=== PATIENT | male | born 1945 | race Caucasian/White ===

== ENCOUNTER → 2017-03-24 | Outpatient (CLI) | payer OTHER ==
[~2017-03-24] MED LIST: ASPIRIN325 PO; COUMADIN 5 MG TA5 M1 PO; DILTIAZEM 24HR240 MG PO; HYZAAR 100-251 EACH PO; PLAVIX 75 MG TA75 MG PO; SIMVASTATIN40 MG PO; TOPROL XL50 MG PO
--- NOTE | ~2017-03-24 | 24HR ---
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 The study duration was 24 hours and the technical quality was good. 2. Predominant rhythm atrial fibrillation at an average heart rate of 65 bpm. The heart rate ranged from 34-107 bpm. Longest RR interval 2.3 seconds. 3. Occasional isolated premature ventricular or aberrantly conducted supraventricular complexes (2%). No episodes of ventricular tachycardia. Occasional ventricular couplets. 4. No symptoms reported. Electronically Signed On 03-31-2017 8:32:02 INSTRUMENT REPAIR SUPERVISOR by Leon Dillard [email or web address] <ELECTRONICALLY SIGNED> By: Leon Dillard MD, [facility] 03/31/17 0832 141 141 Leon Dillard MD, [facility] /EPI
[2017-03-24 15:32] LABS: ALBUMIN 3.6 g/dL (3.4-5.0); DIRECT BILIRUBIN 0.2 mg/dL (<0.1-0.3); TOTAL BILIRUBIN 0.9 mg/dL (<0.1-1.0); TOTAL PROTEIN 7.8 g/dL (6.4-8.2)
== END ==
LOC: CV 14:30 → LABMALL 14:30
PROVIDERS: Internal Medicine Cardiovascular Disease
DX: I48.91 Unspecified atrial fibrillation (principal); E78.00 Pure hypercholesterolemia, unspecified; R00.1 Bradycardia, unspecified

== ENCOUNTER → 2019-02-14 | Outpatient (CLI) | payer OTHER | LOC: SJCVC 15:02 | DX: R94.31 Abnormal electrocardiogram [ECG] [EKG] (principal); I48.21 Permanent atrial fibrillation; I25.10 Atherosclerotic heart disease of native coronary artery without angina pectoris; I10 Essential (primary) hypertension; E78.00 Pure hypercholesterolemia, unspecified; E11.9 Type 2 diabetes mellitus without complications; Z79.82 Long term (current) use of aspirin; Z79.84 Long term (current) use of oral hypoglycemic drugs; Z79.1 Long term (current) use of non-steroidal anti-inflammatories (NSAID); Z79.01 Long term (current) use of anticoagulants; Z79.899 Other long term (current) drug therapy; Z87.891 Personal history of nicotine dependence ==

== ENCOUNTER → 2019-03-20 | Outpatient (CLI) | payer OTHER | LOC: SJCVC 09:51 | DX: Z51.81 Encounter for therapeutic drug level monitoring (principal); I48.91 Unspecified atrial fibrillation; I25.810 Atherosclerosis of coronary artery bypass graft(s) without angina pectoris; Z95.1 Presence of aortocoronary bypass graft; Z79.01 Long term (current) use of anticoagulants ==

== ENCOUNTER → 2019-04-12 | Outpatient (CLI) | payer OTHER | LOC: SJCVC 09:51 | DX: Z51.81 Encounter for therapeutic drug level monitoring (principal); I48.91 Unspecified atrial fibrillation; I25.810 Atherosclerosis of coronary artery bypass graft(s) without angina pectoris; Z95.1 Presence of aortocoronary bypass graft; Z79.01 Long term (current) use of anticoagulants ==

== ENCOUNTER → 2019-06-13 | Outpatient (CLI) | payer OTHER | LOC: SJCVCIMAG 09:00 | DX: R94.31 Abnormal electrocardiogram [ECG] [EKG] (principal); I25.10 Atherosclerotic heart disease of native coronary artery without angina pectoris; I10 Essential (primary) hypertension; I48.21 Permanent atrial fibrillation; I35.0 Nonrheumatic aortic (valve) stenosis; E78.00 Pure hypercholesterolemia, unspecified ==

== ENCOUNTER → 2019-06-27 | Outpatient (CLI) | payer OTHER | LOC: SJCVC 10:48 | PROVIDERS: ATTEND Internal Medicine Cardiovascular Disease | DX: Z51.81 Encounter for therapeutic drug level monitoring (principal); I48.91 Unspecified atrial fibrillation; I25.10 Atherosclerotic heart disease of native coronary artery without angina pectoris; Z95.1 Presence of aortocoronary bypass graft; Z87.891 Personal history of nicotine dependence; Z79.01 Long term (current) use of anticoagulants ==

== ENCOUNTER → 2019-07-25 | Outpatient (CLI) | payer OTHER | LOC: SJCVC 10:09 | PROVIDERS: ATTEND Internal Medicine Cardiovascular Disease | DX: Z51.81 Encounter for therapeutic drug level monitoring (principal); I48.91 Unspecified atrial fibrillation; I25.810 Atherosclerosis of coronary artery bypass graft(s) without angina pectoris; Z95.1 Presence of aortocoronary bypass graft; Z79.01 Long term (current) use of anticoagulants; Z79.82 Long term (current) use of aspirin; Z79.84 Long term (current) use of oral hypoglycemic drugs; Z79.899 Other long term (current) drug therapy ==

== ENCOUNTER → 2019-08-23 | Outpatient (CLI) | payer OTHER | LOC: SJCVC 10:41 | PROVIDERS: ATTEND Internal Medicine Cardiovascular Disease | DX: Z51.81 Encounter for therapeutic drug level monitoring (principal); I48.91 Unspecified atrial fibrillation; I25.810 Atherosclerosis of coronary artery bypass graft(s) without angina pectoris; Z95.1 Presence of aortocoronary bypass graft; Z79.01 Long term (current) use of anticoagulants; Z79.899 Other long term (current) drug therapy; Z79.82 Long term (current) use of aspirin ==

== ENCOUNTER → 2019-09-19 | Outpatient (CLI) | payer OTHER | LOC: SJCVC 10:18 | PROVIDERS: ATTEND Internal Medicine Cardiovascular Disease | DX: Z51.81 Encounter for therapeutic drug level monitoring (principal); I48.91 Unspecified atrial fibrillation; I25.10 Atherosclerotic heart disease of native coronary artery without angina pectoris; I10 Essential (primary) hypertension; Z95.1 Presence of aortocoronary bypass graft; Z79.01 Long term (current) use of anticoagulants; Z79.899 Other long term (current) drug therapy ==

== ENCOUNTER → 2019-11-14 | Outpatient (CLI) | payer OTHER | LOC: SJCVC 10:41 | PROVIDERS: ATTEND Internal Medicine Cardiovascular Disease | DX: Z51.81 Encounter for therapeutic drug level monitoring (principal); Z79.01 Long term (current) use of anticoagulants ==

== ENCOUNTER → 2020-01-09 | Outpatient (CLI) | payer OTHER | LOC: SJCVC 10:25 | PROVIDERS: ATTEND Internal Medicine Cardiovascular Disease | DX: I25.10 Atherosclerotic heart disease of native coronary artery without angina pectoris (principal); I10 Essential (primary) hypertension; I35.0 Nonrheumatic aortic (valve) stenosis; I48.21 Permanent atrial fibrillation; E78.00 Pure hypercholesterolemia, unspecified; R60.9 Edema, unspecified; Z87.891 Personal history of nicotine dependence; Z72.89 Other problems related to lifestyle; Z95.1 Presence of aortocoronary bypass graft; Z79.01 Long term (current) use of anticoagulants; Z79.899 Other long term (current) drug therapy ==

== ENCOUNTER → 2020-02-13 | Outpatient (CLI) | payer OTHER | LOC: SJCVC 10:19 | PROVIDERS: ATTEND Internal Medicine Cardiovascular Disease | DX: Z51.81 Encounter for therapeutic drug level monitoring (principal); I48.91 Unspecified atrial fibrillation; I25.10 Atherosclerotic heart disease of native coronary artery without angina pectoris; Z95.1 Presence of aortocoronary bypass graft; Z79.82 Long term (current) use of aspirin; Z79.01 Long term (current) use of anticoagulants; Z79.899 Other long term (current) drug therapy ==

== ENCOUNTER → 2020-03-12 | Outpatient (CLI) | payer OTHER | LOC: SJCVC 10:15 | PROVIDERS: ATTEND Internal Medicine Cardiovascular Disease | DX: Z51.81 Encounter for therapeutic drug level monitoring (principal); Z79.01 Long term (current) use of anticoagulants; Z79.82 Long term (current) use of aspirin; Z79.899 Other long term (current) drug therapy; Z87.891 Personal history of nicotine dependence; Z72.89 Other problems related to lifestyle ==

== ENCOUNTER → 2020-04-09 | Outpatient (CLI) | payer OTHER | LOC: SJCVC 10:42 | PROVIDERS: ATTEND Internal Medicine Cardiovascular Disease | DX: Z51.81 Encounter for therapeutic drug level monitoring (principal); I48.91 Unspecified atrial fibrillation; I25.10 Atherosclerotic heart disease of native coronary artery without angina pectoris; Z95.1 Presence of aortocoronary bypass graft; Z79.01 Long term (current) use of anticoagulants ==

== ENCOUNTER → 2020-05-08 | Outpatient (CLI) | payer OTHER | LOC: SJCVC 10:42 | PROVIDERS: ATTEND Internal Medicine Cardiovascular Disease | DX: Z51.81 Encounter for therapeutic drug level monitoring (principal); I48.91 Unspecified atrial fibrillation; I25.10 Atherosclerotic heart disease of native coronary artery without angina pectoris; R60.0 Localized edema; Z95.1 Presence of aortocoronary bypass graft; Z79.01 Long term (current) use of anticoagulants ==

== ENCOUNTER → 2020-06-10 | Outpatient (CLI) | payer OTHER | LOC: SJCVC 10:30 | PROVIDERS: ATTEND Internal Medicine Cardiovascular Disease | DX: Z51.81 Encounter for therapeutic drug level monitoring (principal); I48.91 Unspecified atrial fibrillation; I25.10 Atherosclerotic heart disease of native coronary artery without angina pectoris; Z95.1 Presence of aortocoronary bypass graft; Z79.01 Long term (current) use of anticoagulants; Z79.899 Other long term (current) drug therapy ==

== ENCOUNTER → 2020-07-30 | Outpatient (CLI) | payer OTHER | LOC: SJCVCIMAG 08:35 | PROVIDERS: ATTEND Internal Medicine Cardiovascular Disease | DX: I49.3 Ventricular premature depolarization (principal); I25.10 Atherosclerotic heart disease of native coronary artery without angina pectoris; I10 Essential (primary) hypertension; I48.21 Permanent atrial fibrillation; I35.0 Nonrheumatic aortic (valve) stenosis; E78.00 Pure hypercholesterolemia, unspecified; R60.9 Edema, unspecified; E11.9 Type 2 diabetes mellitus without complications; I49.5 Sick sinus syndrome; E78.5 Hyperlipidemia, unspecified; Z98.61 Coronary angioplasty status; Z87.891 Personal history of nicotine dependence; Z72.89 Other problems related to lifestyle; Z79.82 Long term (current) use of aspirin; Z79.84 Long term (current) use of oral hypoglycemic drugs; Z79.899 Other long term (current) drug therapy; Z79.01 Long term (current) use of anticoagulants ==

== ENCOUNTER 2020-08-14 07:50 | Observation (INO) | payer OTHER ==
[~2020-08-14] VITALS: Ht 185.4 cm; Wt 99.8 kg
[2020-08-14] VITALS (10 sets, daily range): BP systolic 127–176; BP diastolic 61–82
[2020-08-14] MEDS ORDERED: LIPITOR80 MG PO (09:50)
[2020-08-14] MEDS ORDERED: CARVEDILOL12.5 MG PO (09:51)
[2020-08-14] MEDS ORDERED: LOSARTAN-HCTZ1 EAC1 PO (09:52)
[2020-08-14] MEDS ORDERED: METFORMIN HCL500 M3 PO (09:52)
[2020-08-14 13:44] LABS: BE(vivo) 2.2 mmol/L (-2 to +3); HCO3 29.3 mmol/L (22.0-26.0); PCO2 VENOUS 56.2 mmHg (41.0-51.0); PO2 VENOUS 43.1 mmHg (35.0-45.0)
[2020-08-14 13:44] LABS: BE(vivo) -0.3 mmol/L (-2 to +3); HCO3 25.8 mmol/L (22.0-26.0); PO2 133.3 mmHg (80.0-100.0); pH 7.349 (7.360-7.450); sO2 98.5 % (92.0-98.0)
--- NOTE | 2020-08-14 15:48 | CATHLAB ---
[facility] [address] [address] INVASIVE PROCEDURE REPORT Name: PREM JASSO Room #: 213-P [facility] Benito MBrenda#: [id number] Admission: 08/14/20 Attend Phys: Caleb Huber MD Discharge: Date of : 41 Report #: [id number] THIS REPORT FOR: cc: Calixto Veras MD, Rene P. MD Park, Jin S. MD ~ APPROVED REPORT Study performed: 08/14/2020 12:53:10 Patient Details Patient Status: Out-Patient Room #: The patient is a 74 year-old male Event Personnel Caleb Huber Chef Concierge, Griselda Lundberg RN RN, Marta Nance RTR Scrub, Amaury Malave RTR Monitor, Ashley Spencer RTR, RIBBON TIER Aquacultural Worker Supervisor Procedures Performed Art Access - R femoral artery* Chaitanya Access - R femoral vein Hemostasis with Manual pressure Right and Left Heart Cath w/or w/o Coronarie [id number] [facility] 47118 Initial Mod Sed Same Phys/QHP Gr5y 061312 96947 Mod Sed Same Phys/QHP Ea 491724 Indication Dyspnea, Positive stress test Risk Factors Hypercholesterolemia, Coronary Artery DiseaseHypertension, Diabetes Previous Procedures/Diagnoses Previous PCI Procedure Narrative The Right Groin^ was infiltrated with 1% Lidocaine subcutaneous anesthesia. A PINNACLE 4FR Sheath #[id number] sheath was inserted into the RFA^. Coronary angiography was performed using coronary diagnostic catheters. The right coronary system was accessed and visualized with a JR4 catheter. The left coronary system was accessed and visualized with a JL4 catheter. The left ventricle was accessed and visualized with a 5FR ANGLED PIGTAIL catheter. Left ventricular/Aortic Valve gradient assessed via simultaneous left ventricle and right femoral artery pressure. Left ventriculogram was [facility] [place] [address] INVASIVE PROCEDURE REPORT Name: LOUISAPREM ELIZABETH Room #: [address] [place] [address] [place] ..#: [id number] Admission: 08/14/20 Attend Phys: Caleb Huber MD Discharge: Date of : 41 Report #: [id number] performed in 30 degree projection. Pre-demployment femoral angiogram was performed . Hemostasis was obtained with manual pressure following sheath removal without any complications. The patient tolerated the procedure well and there were no complications associated with the procedure. There was no hematoma. A 6FR sheath was inserted into the RFA for simultaneous pressures. A 7FR sheath was inserted into the RFV for simultaneous pressures. Right heart pressures were obtained afterwards. Intraoperative Conscious Sedation Fentanyl 50 mcg Versed 1 mg Fluoro Time: 11.20 minutes Dose: DAP 38053.00 cGycm2 2476 mGy Contrast Type and Amount: Visipaque 140 ml Coronary Angiography The patient's coronary anatomy is right dominant. 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 LAD The LAD is a moderate-sized caliber vessel with a severe, calcified stenosis proximally, 80%. The mid and distal segments are patent with no flow-limiting lesions. Diagonal 1 This is a small to moderate-sized caliber vessel, patent with no flow-limiting lesions. Diagonal 2 This is a moderate-sized caliber vessel with a moderate ostial stenosis. 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 This vessel is occluded at the proximal segment. The distal circumflex segment has a small area of distribution and is filled via collateral circulation from the RCA. Right Coronary The RCA is a moderate to large caliber vessel, has ectatic segments throughout. There are patent stents in the mid and distal RCA with minimal restenosis. R PDA This is a moderate-sized caliber vessel, patent with no flow-limiting lesions. RPLV This is a moderate-sized caliber vessel that travels down the inferolateral segment. This vessel is patent with no flow-limiting lesions. Left Ventriculography The left ventricle is normal in size with normal contractility. The left ventricular ejection fraction is estimated to be [facility] [address] [place] [address] INVASIVE PROCEDURE REPORT Name: PREM JASSO Room #: 213-P [facility] IN M.R.#: [id number] Admission: 08/14/20 Attend Phys: Caleb Huber MD Discharge: Date of : 43 Report #: [id number] 50-55%. Hemodynamics The right atrial mean pressure is 15 mmHg. The right ventricular pressure is 70/9 mmHg. The mean pulmonary capillary wedge pressure is 30 mmHg. The aortic pressure is 184/91 mmHg with a mean of 127 mmHg. The left ventricular pressure is 190/14 mmHg with a mean of mmHg. The left ventricular end diastolic pressure is 22 mmHg. Pullback from the left ventricle to the aorta revealed a mm gradient across the aortic valve. PaO2 saturation is 75.40 %. Arterial saturation is 97.10 %. The cardiac output using the Mary Ellen method is 5.92 L/min. The cardiac index using the Mary Ellen method is 2.65 L/min/m2. The mean aortic valve gradient is 40.91 mmHg. The aortic valve area is 1.04 cm2. Conclusion 1. There is severe proximal LAD disease. 2. The RCA is a dominant vessel with patent stents in the mid and distal segments. 3. 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 This vessel is occluded and the distal segments are filled via collateral circulation. 4. There is moderately severe aortic stenosis. 5. Pulmonary hypertension is noted via right-sided cardiac chamber measurements. 6. There is normal LV systolic function. 7. Recommend CV surgical consultation. Consider staged PCI of the LAD if surgery not pursued. <ELECTRONICALLY SIGNED> By: Caleb Huber MD 08/14/20 1548 1548 1548 Caleb Huber MD /INF
--- NOTE | 2020-08-17 11:28 | HC ---
[facility] [place] [address] [place] [address] CONSULTATION Name: PREM JASSO Room #: 213-P [facility] Benito Sloan#: [id number] Admission: 08/14/20 Attend Phys: Caleb Huber MD Discharge: 08/14/20 Date of : 41 Report #: [id number] THIS REPORT FOR: cc: Calixto Veras MD, Rene P. MD Forman, John M. MD ~ DOC #: [id number] Ben August MD DATE OF SERVICE: 08/14/2020 We are asked to see the patient by Dr. Huber. HISTORY OF PRESENT ILLNESS: The patient is a 74-year-old with coronary artery disease and aortic valve stenosis. The patient has a history of coronary artery disease with stents placed years ago on the right coronary artery. Echocardiogram from 06/2019 revealed satisfactory ejection fraction with peak aortic gradient of 43 mmHg and a calculated aortic valve area of 0.8 cm2. The patient states that he is starting to become short of breath with exertion. The patient states this happens when he climbs stairs in excess of the 7 steps he has per flight at home or when he walks, particularly uphill. The patient denies chest pain or symptoms at rest. We note, a nuclear stress test shows reversible defect in the anterolateral segment. PAST MEDICAL HISTORY: Significant for hypertension, diabetes mellitus, atrial fibrillation and dyslipidemia. HOME MEDICATIONS: Includes aspirin, atorvastatin, carvedilol, losartan, hydrochlorothiazide, metformin, triamterene and Coumadin. ALLERGIES: None known. PAST SURGICAL HISTORY: Includes right lower lobectomy for lymphoma in 1996. SOCIAL HISTORY: The patient is and lives with his in [place]. Former smoker. REVIEW OF SYSTEMS: GENERAL: Denies change in weight, fever. EYES: No vision change. ENT: Denies headache. Wears hearing aid, right ear. Denies sinus problems. CARDIAC: As mentioned, atrial fibrillation. No palpitations per se. Denies [facility] [address] [place] [address] CONSULTATION Name: PREM JASSO SIGEL [id number] Admission: 08/14/20 Attend Phys: Caleb Huber MD Discharge: 08/14/20 Date of : 41 Report #: [id number] angina. RESPIRATORY: Shortness of breath on exertion. No cough. No sputum. GASTROINTESTINAL: No nausea, vomiting, diarrhea or blood. GENITOURINARY: No urgency, frequency, blood. MUSCULOSKELETAL: Denies bone or joint problems. SKIN: Denies rash. He does have chronic changes in the gaiter area. NEUROLOGIC: Denies motor or sensory dysfunction. ENDOCRINE: Denies goiter, tremor. PHYSICAL EXAMINATION: GENERAL: The patient is pleasant fellow. He is oriented and appropriate. He is lying in bed, status post cardiac catheterization. VITAL SIGNS: Heart rate is 77, blood pressure 162/70, respiratory rate 17, O2 sat 97% on room air, temperature 36.2. HEENT: No scleral icterus. No arcus. NECK: No mass. I hear no bruit. CHEST: Clear to auscultation. HEART: Rhythm irregular with grade 2-3 systolic aortic murmur at the right upper sternal border radiating to the neck. ABDOMEN: Protuberant, soft. EXTREMITIES: No clubbing, cyanosis or edema. Gaiter areas have chronic hemosiderin deposition and atrophic skin. VASCULAR: 2+ dorsalis pedis pulses bilaterally. NEUROLOGIC: No motor or sensory dysfunction. MUSCULOSKELETAL: No bone or joint asymmetry or deformity. PSYCHIATRIC: Shows insight into problem, oriented x 3, pleasant. ASSESSMENT AND PLAN: The patient has important coronary artery disease, mild, noncritical but important aortic stenosis. I have compared and contrasted 2 approaches for the patient, one with the definitive operation in which all of the coronary lesions would be bypassed and aortic valve replaced. This was compared and contrasted with catheter-based course where the patient would be evaluated for transarterial valve replacement and if that were possible, then proceed with coronary percutaneous revascularization. The patient prefers the percutaneous approach if this is possible. Risks, details, options and alternatives were discussed. The patient prefers the percutaneous approach and I have shared this with Dr. Huber, who will lead this effort. It is a privilege to participate in this challenging the patient's care. Thank you for the consult. MD HUNG Cheney/JANINE/LC [address] [address] CONSULTATION Name: PREM JASSO Room #: [facility] M.Carole#: [id number] Admission: 08/14/20 Attend Phys: Caleb Huber MD Discharge: 08/14/20 Date of : 41 Report #: [id number] <ELECTRONICALLY SIGNED> By: Ben August MD 08/17/20 1128 1501 2304 Ben August MD /nt
== END 2020-08-14 19:03 | disposition home or self-care (01) ==
LOC: CATH 07:50 → 2N 14:53
PROVIDERS: ADMIT Internal Medicine Cardiovascular Disease; ATTEND Internal Medicine Cardiovascular Disease
DX: I25.10 Atherosclerotic heart disease of native coronary artery without angina pectoris (principal); E78.00 Pure hypercholesterolemia, unspecified; I35.0 Nonrheumatic aortic (valve) stenosis; I10 Essential (primary) hypertension; E11.9 Type 2 diabetes mellitus without complications; E78.5 Hyperlipidemia, unspecified; I48.91 Unspecified atrial fibrillation; Z98.890 Other specified postprocedural states; Z87.891 Personal history of nicotine dependence

== ENCOUNTER 2020-08-18 09:16 | Observation (INO) | payer OTHER ==
[~2020-08-18] VITALS: Ht 185.4 cm; Wt 101.0 kg
[~2020-08-18 09:16] MED LIST changes: +CARVEDILOL12.5 MG PO; +LIPITOR80 MG PO; +LOSARTAN-HCTZ1 EAC1 PO; +METFORMIN HCL500 M3 PO
[2020-08-18 10:55] VITALS: BP 159/678
[2020-08-18 11:04] LABS: HEMATOCRIT 35.3 % (42.0-52.0); HEMOGLOBIN 11.8 gm/dL (14.0-18.0); MCH 29.4 pg (26.0-34.0); MCHC 33.3 g/dL (28.0-37.0); MCV 88.5 fL (80.0-100.0); RBC 3.99 mil/uL (4.50-6.00); RDW 15.7 % (10.5-14.5); WBC 6.1 thou/uL (4.0-11.0)
[2020-08-18 11:06] LABS: CALCIUM 9.1 mg/dL (8.5-10.1); CREATININE 1.6 mg/dL (0.7-1.3); POTASSIUM 4.2 mmol/L (3.5-5.1)
--- NOTE | 2020-08-18 15:15 | NUR ---
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 PT ALERT AND ORIENTED.PT TRANSFER FROM CART TO BED BY AMBULATING WITH NO INCIDENT. R RADIAL DEVICE IN PLACE, WILL RELEASE PRESSURE PER ORDERS. ADMISSION COMPLETE, TELE STRIP PRINTED AND DOCUMENTED. CURRENTLY AWAKE IN BED TALKING WITH FAMILY. DENIES NEEDS. CONTINUING POC.
--- NOTE | 2020-08-18 15:23 | CATHLAB ---
[facility] [place] [address] [place] [address] INVASIVE PROCEDURE REPORT Name: PREM JASSO Room #: 219-P ADM IN M.R.#: [id number] Admission: 08/18/20 Attend Phys: Caleb Huber MD Discharge: Date of : 41 Report #: [id number] THIS REPORT FOR: cc: Calixto Veras MD, Rene P. MD Park, Jin S. MD ~ APPROVED REPORT Study performed: 08/18/2020 11:37:50 Patient Details The patient is a 74 year-old male Event Personnel Caleb Huber Sander And Buffer, Maria Dolores Balderas RN RN, Ashley Spencer RTR, Ananda Pires Jordan RTR Monitor Procedures Performed Art Access - R radial artery NAI Place w/wo Plasty Single LAD 663076 17110 Initial Mod Sed Same Phys/QHP Gr5y 076709 94588 Mod Sed Same Phys/QHP Ea 123948 Indication Dyspnea, Positive stress test Risk Factors Hypercholesterolemia, Coronary Artery DiseaseHypertension, Diabetes Previous Procedures/Diagnoses Previous PCI Procedure Narrative The Right Wrist^ was infiltrated with 1% Lidocaine subcutaneous anesthesia. A TRANSRADIAL SLENDER 6F GLIDESHEATH KIT #763116 sheath was inserted into the Right Radial Artery^. Coronary angiography was performed using coronary diagnostic catheters. The patient tolerated the procedure well and there were no complications associated with the procedure. There was no hematoma. A Vasc Band size L was used post procedure to assist in hemostasis. 15cc of air was inserted into the Vasc Band. Intraoperative Conscious Sedation Sedation start time: 1215 Case end Time: 1319 [facility] [address] [address] INVASIVE PROCEDURE REPORT Name: PREM JASSO Room #: 219-P [facility]#: [id number] Admission: 08/18/20 Attend Phys: Caleb Huber MD Discharge: Date of : 41 Report #: [id number] Fentanyl 100 mcg Versed 2 mg Fluoro Time: 19.80 minutes Dose: DAP 45279.70 cGycm2 3581 mGy Contrast Type and Amount: Visipaque 205 ml Diagnostic Cath LAD The patient presents for staged PCI of the LAD stenoses. Previous catheterization was performed on August 14, 2020. He did undergo consultation with CV surgery but the patient has declined the surgical approach. Hemodynamics The aortic pressure is 123/70 mmHg with a mean of 90 mmHg. PCI Technique Lesion Percutaneous coronary intervention was performed on the Proximal left anterior descending artery segment. The lesion stenosis prior to intervention was 85% with JENNIE 3 flow. A VISTA 6FR XB 3.5 #[id number] Guide Catheter was used to engage the ostium. A Luge Wire .014 x 182CM #[id number] Interventional Guidewire was used to cross the lesion. BALLOON DILATION A Balloon catheter TREK RX 2.25 X 15 #[id number] was inserted and inflated up to 14.00atm for 17seconds. Additional Inflation: 16.00atm for 18seconds. A balloon catheter 2.75x15 NC Euphora was inserted and inflated up to 16 mack for 27 sec. Additional inflation: 18 mack for 14 sec. Additional inflation: 22 mack for 44 sec. STENT DEPLOYMENT A drug-eluting stent RESOLUTE BONILLA RX 3.0 X 18 #[id number] was inserted and inflated up to 18.00atm for 37seconds. POST STENT DEPLOYMENT BALLOON DILATION A Balloon catheter Euphora NC RX 3.25 x 15 #[id number] was inserted and inflated up to 18.00atm for 33seconds. Additional Inflation: 22.00atm for 37seconds. A Balloon catheter 3.5x12 NC Trek was inserted and inflated up to 18 mack for 26 sec. Final angiography reveals 10 % stenosis with JENNIE 3 flow. PCI Technique Lesion 2 Percutaneous coronary intervention was performed on the Ostial left anterior descending artery segment. The lesion stenosis prior to intervention was 70% with JENNIE 3 flow. A VISTA 6FR XB 3.[address] #[id number] [address] [address] INVASIVE PROCEDURE REPORT Name: PREM JASSO Room #: 219-P [facility] IN M.R.#: [id number] Admission: 08/18/20 Attend Phys: Caleb Huber MD Discharge: Date of : 41 Report #: [id number] Guide Catheter was used to engage the ostium. A Luge Wire .014 x 182CM #[id number] Interventional Guidewire was used to cross the lesion. Balloon Dilation A Balloon catheter TREK RX 2.25 X 15 #[id number] was inserted and inflated up to 14atm for 12seconds. A Balloon catheter 2.75x15 NC Euphora was inserted and inflated up to 16 mack for 15 sec. Stent Deployment A drug-eluting stent RESOLUTE BONILLA RX 3.5 X 15 #[id number] was inserted and inflated up to 20atm for 21seconds. Post Stent Deployment Balloon Dilation A Balloon catheter TREK NC RX 3.5 X 12 #[id number] was inserted and inflated up to 20atm for 18seconds. Final angiography reveals 5 % stenosis with JENNIE 3 flow. PCI Technique Lesion 3 Percutaneous Coronary Intervention was performed on the proximal left anterior descending artery segment. Conclusion 1. Successful insertion of a 3.5 mm drug-eluting stent into the ostial LAD segment. 2. Successful insertion of a 3.0 mm drug-eluting stent into the proximal LAD segment. 3. Recommend guideline directed medical therapy and antiplatelet therapy. <ELECTRONICALLY SIGNED> By: Caleb Huber MD 08/18/20 1523 1523 1523 Caleb Huber MD /INF
[2020-08-18 19:51] VITALS: BP 156/64
[2020-08-19 03:02] LABS: HEMATOCRIT 36.8 % (42.0-52.0); HEMOGLOBIN 12.4 gm/dL (14.0-18.0); MCH 29.9 pg (26.0-34.0); MCHC 33.8 g/dL (28.0-37.0); MCV 88.5 fL (80.0-100.0); RBC 4.16 mil/uL (4.50-6.00); RDW 15.7 % (10.5-14.5); WBC 5.6 thou/uL (4.0-11.0)
[2020-08-19 03:47] LABS: CREATININE 1.4 mg/dL (0.7-1.3)
[2020-08-19 04:30] VITALS: BP 148/69
--- NOTE | 2020-08-19 04:41 | NUR ---
pt resting quietly thru the noc, no c/o pain, r radial site remains cdi, vss, hopes to go home in am.
--- NOTE | 2020-08-19 07:16 | EKG ---
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 : 1945 Requested By: Caleb Huber Order Number: [id number] : Yoni Brandon Measurements Intervals [place] Rate: 64 P: RI: QRS: -30 QRSD: 108 T: 19 QT: 430 QTc: 444 Interpretive Statements Atrial fibrillation Inferior infarct, old Probable anterior infarct, age indeterminate Compared to ECG 07/31/2009 07:07:20 No significant changes Electronically Signed On 08-19-2020 7:16:28 CDT by Yoni Brandon [email or web address] <ELECTRONICALLY SIGNED> By: Yoni Brandon MD, [facility] 08/19/20 0716 31 31 Yoni Brandon MD, FACC /EPI
[2020-08-19] MEDS ORDERED: BRILINTA90 MG PO ×2 (07:31→08:40)
[2020-08-19 08:00] VITALS: BP 150/100
[2020-08-19 10:35] VITALS: BP 150/100
--- NOTE | 2020-08-19 13:05 | NUR ---
PT IS AXOX4, PLEASANT; VSS, AFEBRILE, AFIB TO SR ON MONITOR. CARDIOLOGY CONSULTED, CARDIOVASULAR REHAB NNURSE CONSULTED. PT EDUCATION CONDUCTED AT THE BEDSIDE FOR POST CATH, AND HEART HEALTH POST D/C. PT COMMUNICATED UNDERSTANDING. PT TO D/C HOME. AT THE BEDSIDE. NO CONCERNS AT THIS TIME.
== END 2020-08-19 11:18 | disposition home or self-care (01) ==
LOC: CATH 09:16 → 2N 14:23
PROVIDERS: ADMIT Internal Medicine Cardiovascular Disease; ATTEND Internal Medicine Cardiovascular Disease
DX: I25.110 Atherosclerotic heart disease of native coronary artery with unstable angina pectoris (principal); I10 Essential (primary) hypertension; E78.5 Hyperlipidemia, unspecified; I35.0 Nonrheumatic aortic (valve) stenosis; I48.21 Permanent atrial fibrillation; Z79.01 Long term (current) use of anticoagulants; Z79.82 Long term (current) use of aspirin; Z79.899 Other long term (current) drug therapy

== ENCOUNTER → 2020-09-03 | Outpatient (CLI) | payer OTHER ==
[~2020-09-03] MED LIST changes: +BRILINTA90 MG PO
== END ==
LOC: SJCVC 09:20
PROVIDERS: ATTEND Internal Medicine Cardiovascular Disease
DX: R94.31 Abnormal electrocardiogram [ECG] [EKG] (principal); I48.21 Permanent atrial fibrillation; I25.10 Atherosclerotic heart disease of native coronary artery without angina pectoris; I10 Essential (primary) hypertension; I35.0 Nonrheumatic aortic (valve) stenosis; E78.00 Pure hypercholesterolemia, unspecified; R60.9 Edema, unspecified; Z95.5 Presence of coronary angioplasty implant and graft; Z88.8 Allergy status to other drugs, medicaments and biological substances; Z79.82 Long term (current) use of aspirin; Z79.01 Long term (current) use of anticoagulants; Z79.84 Long term (current) use of oral hypoglycemic drugs; Z79.899 Other long term (current) drug therapy; Z87.891 Personal history of nicotine dependence

== ENCOUNTER → 2020-10-02 | Outpatient (CLI) | payer OTHER | LOC: SJCVC 09:50 | PROVIDERS: ATTEND Internal Medicine Cardiovascular Disease | DX: Z51.81 Encounter for therapeutic drug level monitoring (principal); I12.9 Hypertensive chronic kidney disease with stage 1 through stage 4 chronic kidney disease, or unspecified chronic kidney disease; N18.9 Chronic kidney disease, unspecified; E11.22 Type 2 diabetes mellitus with diabetic chronic kidney disease; I25.10 Atherosclerotic heart disease of native coronary artery without angina pectoris; E11.9 Type 2 diabetes mellitus without complications; E78.00 Pure hypercholesterolemia, unspecified; Z79.01 Long term (current) use of anticoagulants; Z79.82 Long term (current) use of aspirin; Z79.84 Long term (current) use of oral hypoglycemic drugs; Z72.89 Other problems related to lifestyle; Z87.891 Personal history of nicotine dependence ==

== ENCOUNTER → 2020-10-30 | Outpatient (CLI) | payer OTHER | LOC: SJCVC 09:53 | PROVIDERS: ATTEND Internal Medicine Cardiovascular Disease | DX: Z51.81 Encounter for therapeutic drug level monitoring (principal); I12.9 Hypertensive chronic kidney disease with stage 1 through stage 4 chronic kidney disease, or unspecified chronic kidney disease; E11.22 Type 2 diabetes mellitus with diabetic chronic kidney disease; N18.9 Chronic kidney disease, unspecified; I25.10 Atherosclerotic heart disease of native coronary artery without angina pectoris; E78.00 Pure hypercholesterolemia, unspecified; Z79.01 Long term (current) use of anticoagulants; Z79.82 Long term (current) use of aspirin; Z79.899 Other long term (current) drug therapy; Z88.8 Allergy status to other drugs, medicaments and biological substances; Z87.891 Personal history of nicotine dependence; Z72.89 Other problems related to lifestyle ==

== ENCOUNTER → 2020-11-19 | Outpatient (CLI) | payer OTHER | LOC: SJCVC 10:58 | PROVIDERS: ATTEND Internal Medicine Cardiovascular Disease | DX: R94.31 Abnormal electrocardiogram [ECG] [EKG] (principal); I48.91 Unspecified atrial fibrillation; I12.9 Hypertensive chronic kidney disease with stage 1 through stage 4 chronic kidney disease, or unspecified chronic kidney disease; E11.22 Type 2 diabetes mellitus with diabetic chronic kidney disease; N18.9 Chronic kidney disease, unspecified; I25.10 Atherosclerotic heart disease of native coronary artery without angina pectoris; I48.21 Permanent atrial fibrillation; I35.0 Nonrheumatic aortic (valve) stenosis; E78.00 Pure hypercholesterolemia, unspecified; Z79.84 Long term (current) use of oral hypoglycemic drugs; Z79.01 Long term (current) use of anticoagulants; Z79.899 Other long term (current) drug therapy; Z87.891 Personal history of nicotine dependence ==

== ENCOUNTER → 2020-12-16 | Outpatient (CLI) | payer OTHER | LOC: SJCVC 09:38 | PROVIDERS: ATTEND Internal Medicine Cardiovascular Disease | DX: Z51.81 Encounter for therapeutic drug level monitoring (principal); Z79.01 Long term (current) use of anticoagulants ==

== ENCOUNTER → 2021-01-14 | Outpatient (CLI) | payer OTHER | LOC: SJCVC 10:06 | PROVIDERS: ATTEND Internal Medicine Cardiovascular Disease | DX: Z51.81 Encounter for therapeutic drug level monitoring (principal); Z79.01 Long term (current) use of anticoagulants ==

== ENCOUNTER → 2021-02-11 | Outpatient (CLI) | payer OTHER | LOC: SJCVC 09:40 | PROVIDERS: ATTEND Internal Medicine Cardiovascular Disease | DX: Z51.81 Encounter for therapeutic drug level monitoring (principal); I48.91 Unspecified atrial fibrillation; Z79.01 Long term (current) use of anticoagulants ==